=== PATIENT | male | born 1965 | race Caucasian/White ===

== ENCOUNTER 2024-02-24 12:33 | Emergency (ER) | payer SELFPAY | END 2024-02-24 13:31 | disposition left against medical advice (07) | LOC: MW.ED 12:33 | DX: Z53.21 Procedure and treatment not carried out due to patient leaving prior to being seen by health care provider (principal) ==

== ENCOUNTER 2024-02-24 16:06 | Emergency (ER) | payer MEDICAID ==
[2024-02-24] MEDS: predniSONE 20 MG Tab PO ONE (17:58)
[2024-02-24] MEDS: Doxycycline 100 MG Cap PO ONE (17:58)
[2024-02-24] MEDS: Albuterol 8 GM Inhaler INH ONE (17:59)
== END 2024-02-24 18:17 | disposition home or self-care (01) ==
LOC: MW.ED 16:06
DX: R05.9 Cough, unspecified (principal); I10 Essential (primary) hypertension; F17.210 Nicotine dependence, cigarettes, uncomplicated; Z75.8 Other problems related to medical facilities and other health care; Z79.899 Other long term (current) drug therapy; Z88.0 Allergy status to penicillin
CPT/HCPCS: 99284; A9270

== ENCOUNTER 2024-04-11 11:33 | Emergency (ER) | payer MEDICAID ==
[2024-04-11 12:27] LABS: BASOPHILS ABSOLUTE AUTO 0.05 K/uL (0.00-0.20); BASOPHILS PERCENT AUTO 0.5 % (0.0-1.0); EOSINOPHILS ABSOLUTE AUTO 0.21 K/uL (0.00-0.45); EOSINOPHILS PERCENT AUTO 2.2 % (0.0-6.0); HEMOGLOBIN 14.9 g/dL (14.0-18.0); IMMATURE GRAN ABSOLUTE AUTO 0.04 K/uL (0.00-0.05); IMMATURE GRAN PERCENT AUTO 0.4 % (0.0-0.4); LYMPHOCYTES ABSOLUTE AUTO 3.47 K/uL (1.00-4.80); LYMPHOCYTES PERCENT AUTO 36.6 % (24.0-44.0); MEAN CORPUSCULAR HEMOGLOBIN 31.8 pg (28.0-32.0); MEAN CORPUSCULAR HGB CONC 33.9 g/dL (32.0-36.0); MEAN PLATELET VOLUME 8.7 fL (9.4-12.4); MONOCYTES ABSOLUTE AUTO 0.76 K/uL (0.00-0.80); NEUTROPHILS ABSOLUTE AUTO 4.95 K/uL (1.80-7.70); NEUTROPHILS PERCENT AUTO 52.3 % (41.0-71.0); PLATELET COUNT,PLT 311 K/uL (150-400); RED BLOOD CELL COUNT 4.68 M/uL (4.52-5.90); WHITE BLOOD CELL COUNT,WBC 9.48 K/uL (3.9-11.3)
[2024-04-11 13:06] LABS: A/G RATIO 0.9 (0.9-1.6); ALBUMIN 3.6 g/dL (3.4-5.0); BILIRUBIN TOTAL 0.3 mg/dL (0.2-1.0); CALCIUM 8.9 mg/dL (8.5-10.1); CARBON DIOXIDE,CO2 28.6 mmol/L (21.0-32.0); EST CRCL DRUG DOSING (CG) 87.3 mL/min; PROTEIN TOTAL,TP 7.7 g/dL (6.4-8.2)
== END 2024-04-11 13:38 | disposition home or self-care (01) ==
LOC: MW.ED 11:33
DX: Z76.0 Encounter for issue of repeat prescription (principal); I10 Essential (primary) hypertension; J45.909 Unspecified asthma, uncomplicated; F17.210 Nicotine dependence, cigarettes, uncomplicated; Z88.0 Allergy status to penicillin; Z79.899 Other long term (current) drug therapy; Z75.8 Other problems related to medical facilities and other health care
CPT/HCPCS: 36415; 80053; 85025; 99282

== ENCOUNTER 2024-08-24 09:18 | Inpatient (IN) | payer BC ==
[2024-08-24] MEDS ORDERED: Sodium Chloride 0.9% 2.5 ML Syringe FLUSH PRN (10:48)
[2024-08-24] MEDS ORDERED: Sodium Chloride 0.9% 10 ML Syringe FLUSH PRN (10:48)
[2024-08-24] MEDS ORDERED: Sodium Chloride 0.9% 20 ML SDV IV PRN (10:48)
[2024-08-24 11:16] LABS: HEMATOCRIT 34.4 % (42.0-52.0); HEMOGLOBIN 11.9 g/dL (14.0-18.0); MEAN CORPUSCULAR HEMOGLOBIN 30.9 pg (28.0-32.0); MEAN CORPUSCULAR HGB CONC 34.6 g/dL (32.0-36.0); MEAN CORPUSCULAR VOLUME 89.4 fL (83.0-99.0); MEAN PLATELET VOLUME 9.3 fL (9.4-12.4); PLATELET COUNT,PLT 532 K/uL (150-400); RED BLOOD CELL COUNT 3.85 M/uL (4.52-5.90)
[2024-08-24 11:24] LABS: WHITE BLOOD CELL COUNT,WBC 35.06 K/uL (3.9-11.3)
[2024-08-24 11:30] LABS: BAND ABSOLUTE MAN 1.05; BAND PERCENT MAN 3 %; LYMPHOCYTES ABSOLUTE MAN 3.86 K/uL (1.00-4.80); LYMPHOCYTES PERCENT MAN 11 % (24-44); MONOCYTES ABSOLUTE MAN 1.75 K/uL (0.00-0.80); MONOCYTES PERCENT MAN 5 % (0-8); SEG NEUTROPHILS PERCENT MAN 81 % (41-71)
[2024-08-24] MEDS: Sodium Chloride 0.9% 1,000 ML IV ONE ×3 (11:30→13:26)
[2024-08-24 11:58] LABS: ALBUMIN 1.4 g/dL (3.4-5.0); BILIRUBIN TOTAL 0.4 mg/dL (0.2-1.0); CALCIUM 7.8 mg/dL (8.5-10.1); CARBON DIOXIDE,CO2 29.2 mmol/L (21.0-32.0); CREATININE 1.3 mg/dL (0.8-1.3); EST CRCL DRUG DOSING (CG) 67.15 mL/min; MAGNESIUM 0.9 mg/dL (1.8-2.4); POTASSIUM,K 3.5 mmol/L (3.5-5.1)
[2024-08-24 11:59] LABS: A/G RATIO 0.3 (0.9-1.6)
[2024-08-24] MEDS: Acetaminophen 500 MG Tab PO ONE (12:03)
[2024-08-24] MEDS: VANCOmycin 2 GM/400 ML 2 GM in Premix Bag 1 BAG IV ONE (12:08)
[2024-08-24] MEDS ORDERED: Magnesium Sulf/Wat 2 GM/50 mL 2 GM in Premix Bag 1 BAG IV ONE (13:24)
[2024-08-24] MEDS: Magnesium Sulf/Wat 2 GM/50 mL 2 GM in Premix Bag 1 BAG IV ONE ×2 (13:29→17:30)
[2024-08-24 13:31] LABS: LACTIC ACID 1.4 mmol/L (0.4-2.0)
[2024-08-24 13:43] LABS: BASE EXCESS VENOUS 1.5 (-2.0-3.0); PH,VENOUS 7.51 (7.32-7.43)
[2024-08-24] MEDS ORDERED: Levalbuterol HCl 1.25 MG/3 ML Neb NEB PRN (14:39)
[2024-08-24] MEDS: Lactated Ringers 1,000 ML IV SCH (14:56)
[2024-08-24] MEDS ORDERED: Sodium Chloride 0.9% 1,000 ML IV SCH (15:00)
[2024-08-24] MEDS: Iopamidol 755 MG/ML 500 ML Multipack Bottle IVPUSH STA (15:21)
[2024-08-24 15:32] LABS: CALCIUM 7.1 mg/dL (8.5-10.1); CARBON DIOXIDE,CO2 26.8 mmol/L (21.0-32.0); CREATININE 1.4 mg/dL (0.8-1.3); EST CRCL DRUG DOSING (CG) 62.36 mL/min; MAGNESIUM 1.2 mg/dL (1.8-2.4); POTASSIUM,K 3.6 mmol/L (3.5-5.1)
[2024-08-24] MEDS ORDERED: Acetaminophen 500 MG Tab PO PRN (15:54)
[2024-08-24] MEDS: Azithromycin 500 MG in Sodium Chloride 0.9% 250 ML IV SCH (17:01)
[2024-08-24] MEDS: Pantoprazole 40 MG in Sodium Chloride 0.9% 10 ML IVPUSH SCH ×2 (17:01→17:34)
[2024-08-24] MEDS: Enoxaparin 40 MG/0.4 ML Syringe SUBCUT SCH ×2 (17:01→17:39)
[2024-08-24] MEDS: Doxycycline 100 MG in Sodium Chloride 0.9% 100 ML IV SCH ×2 (17:02→17:28)
[2024-08-24] MEDS: Cefepime 2 GM in Sodium Chloride 0.9% 50 ML IV SCH ×2 (17:02→17:31)
[2024-08-24] MEDS: Nicotine 14 MG/24 Hr Patch TRDERM SCH (17:38)
[2024-08-24] MEDS ORDERED: EPINEPHrine 1:10,000 1 MG/10 ML Syringe IVPUSH PRN (19:43)
[2024-08-24] MEDS ORDERED: EPINEPHrine 1:10,000 1 MG/10 ML Syringe ONE (19:43)
[2024-08-24 19:44] LABS: CALCIUM 7.1 mg/dL (8.5-10.1); CARBON DIOXIDE,CO2 25.6 mmol/L (21.0-32.0); CREATININE 1.3 mg/dL (0.8-1.3); EST CRCL DRUG DOSING (CG) 67.15 mL/min; MAGNESIUM 1.5 mg/dL (1.8-2.4); POTASSIUM,K 3.5 mmol/L (3.5-5.1)
[2024-08-24] MEDS ORDERED: EPINEPHrine in 0.9 %/Sod Chlor 250 ML ONE (19:56)
[2024-08-24] MEDS ORDERED: Sodium Bicarbonate 8.4% 50 MEQ/50 ML Syringe IVPUSH PRN (20:07)
[2024-08-24] MEDS ORDERED: Calcium Chloride 10% 1 GM/10 ML Syringe IVPUSH ONE (20:07)
[2024-08-24] MEDS ORDERED: Magnesium Sulfate (4.06 MEQ/ML) 5 GM/10 ML SDV IV ONE ×2 (20:11)
[2024-08-24] MEDS ORDERED: 50% Dextrose in Water 50 ML Syringe IVPUSH ONE (20:30)
[2024-08-24] MEDS ORDERED: Atropine 0.1 MG/ML 10 ML Syringe IVPUSH PRN (20:40)
[2024-08-24] MEDS ORDERED: Norepinephrine Bit/D5W Premix 250 ML ONE (21:20)
[2024-08-24] MEDS ORDERED: Sodium Chloride 0.9% 1,000 ML IV ONE (21:21)
[2024-08-24 21:23] LABS: HEMATOCRIT 22.1 % (42.0-52.0); HEMOGLOBIN 7.8 g/dL (14.0-18.0); MEAN CORPUSCULAR HGB CONC 35.3 g/dL (32.0-36.0); MEAN CORPUSCULAR VOLUME 87.7 fL (83.0-99.0); MEAN PLATELET VOLUME 9.3 fL (9.4-12.4); NRBC ABSOLUTE 0.12 K/uL (0.00-0.02); NRBC PERCENT 0.4 /100WBC (0.0-0.2); PLATELET COUNT,PLT 269 K/uL (150-400); RED BLOOD CELL COUNT 2.52 M/uL (4.52-5.90); WHITE BLOOD CELL COUNT,WBC 27.07 K/uL (3.9-11.3)
[2024-08-24] MEDS ORDERED: Tranexamic Acid 1,000 MG/10 ML Vial NEB ONE (21:29)
[2024-08-24] MEDS ORDERED: Tranexamic Acid in NACL,ISO-OS 1,000 MG in Premix Bag 1 BAG IV ONE (21:36)
[2024-08-24] MEDS ORDERED: Norepinephrine Bit/D5W Premix 250 ML IV SCH (21:45)
[2024-08-24 21:54] LABS: CALCIUM 8.1 mg/dL (8.5-10.1); CARBON DIOXIDE,CO2 16.2 mmol/L (21.0-32.0); CREATININE 1.8 mg/dL (0.8-1.3); EST CRCL DRUG DOSING (CG) 48.5 mL/min; MAGNESIUM 2.6 mg/dL (1.8-2.4); POTASSIUM,K 5.7 mmol/L (3.5-5.1)
[2024-08-24 22:00] LABS: BAND ABSOLUTE MAN 0.81; BAND PERCENT MAN 3 %; LYMPHOCYTES ABSOLUTE MAN 5.41 K/uL (1.00-4.80); LYMPHOCYTES PERCENT MAN 20 % (24-44); MONOCYTES ABSOLUTE MAN 1.35 K/uL (0.00-0.80); MONOCYTES PERCENT MAN 5 % (0-8)
[2024-08-24] MEDS ORDERED: Levalbuterol HCl 1.25 MG/3 ML Neb NEB SCH (22:00)
[2024-08-24 22:01] LABS: METAMYELOCYTE ABSOLUTE MAN 0.27; METAMYELOCYTE PERCENT MAN 1 %; SEG NEUTROPHILS ABSOLUTE MAN 19.22 K/uL (1.80-7.70); SEG NEUTROPHILS PERCENT MAN 71 % (41-71)
[2024-08-25] MEDS ORDERED: VANCOmycin 1 GM in Sodium Chloride 0.9% 250 ML IV SCH
[2024-08-27 17:03] LABS: QNTIFERON MITOGEN MIN NIL 0.38 IU/mL; QNTIFERON NIL 0.01 IU/mL; QNTIFERON PLUS TB1 MINUS NIL 0.01 IU/mL (<=0.34); QNTIFERON TB GOLD PLUS Indeterminate (Negative)
== END 2024-08-24 22:51 | disposition expired | DRG 720 ==
LOC: MW.ED 09:18 → MW.ICU 15:09
PROVIDERS: ADMIT Internal Medicine; ATTEND Internal Medicine
PROC: 5A1221J Performance of Cardiac Output, Continuous, Automated (ICD-10-PCS; principal; 2024-08-24)
PROC: 3E033XZ Introduction of Vasopressor into Peripheral Vein, Percutaneous Approach (ICD-10-PCS; 2024-08-24)
PROC: 3E03329 Introduction of Other Anti-infective into Peripheral Vein, Percutaneous Approach (ICD-10-PCS; 2024-08-24)
PROC: 30233N1 Transfusion of Nonautologous Red Blood Cells into Peripheral Vein, Percutaneous Approach (ICD-10-PCS; 2024-08-24)
PROC: 0BH17EZ Insertion of Endotracheal Airway into Trachea, Via Natural or Artificial Opening (ICD-10-PCS; 2024-08-24)
DX: A41.9 Sepsis, unspecified organism (principal); J18.9 Pneumonia, unspecified organism; R04.2 Hemoptysis; J44.0 Chronic obstructive pulmonary disease with (acute) lower respiratory infection; E86.0 Dehydration; I10 Essential (primary) hypertension; F17.210 Nicotine dependence, cigarettes, uncomplicated; K21.9 Gastro-esophageal reflux disease without esophagitis; E83.42 Hypomagnesemia; E86.1 Hypovolemia; Z88.0 Allergy status to penicillin; Z79.51 Long term (current) use of inhaled steroids; Z79.899 Other long term (current) drug therapy
CPT/HCPCS: 36430; 71045; 71045-26; 71046; 71046-26; 71260; 71260-26; 80048; 80053; 82550; 82803; 82947; 83605; 83735; 83880; 84145; 84484; 85025; 86480; 86850; 86900; 86901; 86920; 87040; 87428-QW; 93005; 94667; 96361; 96365; 96366; 96367; 96368; 99285; 99285-25; A9270-GY; J0171; J0457; J0461; J0692; J1650; J2470; J3372; J3475; J3490; J7030; J7120; P9016; Q9967